=== PATIENT | female | born 1930 | race Caucasian/White ===

== ENCOUNTER 2020-04-13 18:00 | Emergency (ER) | payer OTHER ==
[~2020-04-13] VITALS: Ht 152.4 cm; Wt 63.5 kg
[2020-04-13] MEDS ORDERED: FORTAMET500 MG (18:10)
== END 2020-04-13 20:10 | disposition home or self-care (01) ==
LOC: ER 18:00
DX: S30.0XXA Contusion of lower back and pelvis, initial encounter (principal); W07.XXXA Fall from chair, initial encounter; Y93.89 Activity, other specified; Y92.098 Other place in other non-institutional residence as the place of occurrence of the external cause; Y99.8 Other external cause status

== ENCOUNTER 2020-04-18 21:13 | Emergency (ER) | payer OTHER ==
[~2020-04-18] VITALS: Ht 121.9 cm; Wt 65.8 kg
[~2020-04-18 21:13] MED LIST: FORTAMET500 MG
== END 2020-04-18 23:42 | disposition home or self-care (01) ==
LOC: ER 21:13
DX: K59.09 Other constipation (principal)

== ENCOUNTER 2020-04-21 21:27 | Emergency (ER) | payer OTHER ==
[~2020-04-21] VITALS: Ht 152.4 cm; Wt 72.6 kg
[2020-04-22] MEDS ORDERED: MOBIC15 MG PO (07:37)
[2020-04-22] MEDS ORDERED: LEVSIN/SL0.125 MG SL (07:37)
[2020-04-22] MEDS ORDERED: PEPCID40 MG PO (07:37)
== END 2020-04-22 09:04 | disposition home or self-care (01) ==
LOC: ER 21:27
DX: S30.0XXA Contusion of lower back and pelvis, initial encounter (principal); M54.5 Low back pain; W18.39XA Other fall on same level, initial encounter; Y93.89 Activity, other specified; Y92.89 Other specified places as the place of occurrence of the external cause; Y99.8 Other external cause status; K52.9 Noninfective gastroenteritis and colitis, unspecified